=== PATIENT | male | born 1970 | race Caucasian/White ===

== ENCOUNTER 2017-05-04 20:59 | Emergency (ER) | payer OTHER ==
[~2017-05-04] VITALS: Ht 172.7 cm; Wt 83.9 kg
[2017-05-04] MEDS ORDERED: MORPHINE SULFATE 4 MG/1 ML DISP.SYRIN IM ONE (21:45)
[2017-05-04] MEDS ORDERED: ONDANSETRON ODT 4 MG TAB.RAPDIS SL ONE (21:45)
[2017-05-04] MEDS ORDERED: MORPHINE SULFATE 4 MG/1 ML DISP.SYRIN ONE ×2 (21:45→22:01)
[2017-05-04] MEDS ORDERED: ONDANSETRON ODT 4 MG TAB.RAPDIS ONE ×2 (21:45→22:01)
== END 2017-05-04 23:57 | disposition home or self-care (01) ==
LOC: ER 21:01
DX: M25.461 Effusion, right knee (principal); X50.9XXA Other and unspecified overexertion or strenuous movements or postures, initial encounter; Y93.89 Activity, other specified; Y92.9 Unspecified place or not applicable; Y99.9 Unspecified external cause status
CPT/HCPCS: 73562; A4663; J2270; Q0162

== ENCOUNTER 2019-02-14 10:56 | Emergency (ER) | payer OTHER ==
[~2019-02-14] VITALS: Ht 172.7 cm; Wt 86.2 kg
--- NOTE | 2019-02-14 11:15 | NUR ---
JAYLA FLOOD AT BEDSIDE FOR MSE.
[2019-02-14 11:28] VITALS: BP 145/82
[2019-02-14] MEDS ORDERED: METRONIDAZOLE 500 MG TABLET ONE (11:28)
[2019-02-14] MEDS ORDERED: METRONIDAZOLE 500 MG TABLET PO ONE (11:30)
--- NOTE | 2019-02-14 11:30 | NUR ---
Patient discharged to home in stable conditon. Written and verbal after care instructions given. Patient verbalizes understanding of instructions. ALL BELONGINGS W/ PT. PT SELF-AMBULATED W/O DIFFICULTY.
== END 2019-02-14 11:31 | disposition home or self-care (01) ==
LOC: ER 10:56
DX: K61.0 Anal abscess (principal)
CPT/HCPCS: A4663

== ENCOUNTER 2019-02-16 06:52 | Emergency (ER) | payer OTHER ==
[~2019-02-16] VITALS: Ht 172.7 cm; Wt 87.1 kg
--- NOTE | 2019-02-16 07:10 | NUR ---
Dr Orr at the bedside for MSE.
[2019-02-16 07:34] VITALS: BP 145/97
--- NOTE | 2019-02-16 07:35 | NUR ---
Patient discharged to home in stable conditon. Written and verbal after care instructions given. Patient verbalizes understanding of instructions.
== END 2019-02-16 07:35 | disposition home or self-care (01) ==
LOC: ER 06:59
DX: K61.1 Rectal abscess (principal)
CPT/HCPCS: A4663

== ENCOUNTER 2019-02-22 07:41 | Emergency (ER) | payer OTHER ==
[~2019-02-22] VITALS: Ht 172.7 cm; Wt 87.1 kg
--- NOTE | 2019-02-22 08:10 | NUR ---
PATIENT WAS MSE BY DR CYR IN ROOM 03A.
--- NOTE | 2019-02-22 08:20 | NUR ---
Patient discharged to home in stable conditon. Written and verbal after care instructions given. Patient verbalizes understanding of instructions.
[2019-02-22 08:25] VITALS: BP 127/88
== END 2019-02-22 08:25 | disposition home or self-care (01) ==
LOC: ER 07:43
DX: K62.89 Other specified diseases of anus and rectum (principal)
CPT/HCPCS: A4663